=== PATIENT | female | born 1960 | race Caucasian/White ===

== ENCOUNTER 2020-06-07 14:28 | Inpatient (IN) | payer MEDICAID ==
[~2020-06-07] VITALS: Ht 165.1 cm; Wt 105.0 kg
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
[2020-06-07] MEDS ORDERED: SODIUM CHLORIDE FLUSH 10ML SYR IVF ONE (15:30)
[2020-06-07 16:11] LABS: ALANINE AMINOTRANSFERASE 31 U/L (12-78); ANION GAP 5 mmol/L (5-15); CALCIUM 8.8 mg/dL (8.5-10.1); CHLORIDE 105 mmol/L (98-107)
[2020-06-07 16:12] LABS: SALICYLATE LEVEL < 1.7 mg/dL (2.8-20.0)
[2020-06-07 16:16] LABS: ALKALINE PHOSPHATASE 94 U/L (45-117); BILIRUBIN,TOTAL 0.2 mg/dL (0.2-1.0); CREATININE 0.77 mg/dL (0.55-1.02); TOTAL PROTEIN 7.1 g/dL (6.4-8.2); TROPONIN I < 0.015 ng/mL (0.000-0.045)
--- NOTE | 2020-06-07 16:25 | NUR ---
STRAIGHT CATHED FOR UA. NAD. C/O L LEG PAIN. CALL RHODA.
[2020-06-07 16:51] LABS: BASOPHILS # (AUTO) 0.02 x10^3/uL (0-0.1); BASOPHILS % (AUTO) 0 % (0-1); EOSINOPHILS # (AUTO) 0.24 x10^3/uL (0-0.4); EOSINOPHILS % (AUTO) 3 % (1-7); LYMPHOCYTES # (AUTO) 2.16 x10^3/uL (1-3.4); LYMPHOCYTES % (AUTO) 30 % (22-44); MD NO; MEAN CORPUSCULAR HEMOGLOBIN 26.9 pg (27.0-34.8); MEAN CORPUSCULAR HGB CONC 32.2 g/dL (32.4-35.8); MEAN CORPUSCULAR VOLUME 83.7 fL (80-100); MEAN PLATELET VOLUME 7.9 fL (7.4-10.4); MONOCYTES # (AUTO) 0.52 x10^3/uL (0.2-0.8); MONOCYTES % (AUTO) 7 % (2-9); NEUTROPHILS # (AUTO) 4.26 x10^3/uL (1.8-6.8); NEUTROPHILS % (AUTO) 59 % (42-75); PLATELET COUNT 257 x10^3/uL (130-400); RED BLOOD COUNT 4.34 x10^6/uL (3.82-5.3); RED CELL DISTRIBUTION WIDTH 14.9 % (9.6-15.2)
[2020-06-07 17:19] LABS: MICROSCOPIC NOT IND
--- NOTE | 2020-06-07 17:23 | NUR ---
REPORT OF PT FROM QUINTON EL AND ASSUMING CARE OF PT AT THIS TIME.
--- NOTE | 2020-06-07 17:23 | NUR ---
URINE PENDING. REST IS WNL. REPORT TO DAKOTAH Brady RN.
[2020-06-07] MEDS ORDERED: SODIUM CHLORIDE FLUSH 10ML SYR IVF PRN (18:00)
[2020-06-07 18:42] LABS: AMPHETAMINE SCREEN, URINE Negative (Negative); BARBITURATE SCREEN, URINE Negative (Negative); BENZODIAZEPINE SCREEN, URINE Negative (Negative); CANNABINOID SCREEN, URINE Negative (Negative); COCAINE SCREEN, URINE Negative (Negative); METHADONE SCREEN, URINE Negative (Negative); OPIATE SCREEN, URINE Positive (Negative)
--- NOTE | 2020-06-07 19:58 | NUR ---
PT ASSISTED BACK TO [facility] AT THIS TIME.
[2020-06-07] MEDS ORDERED: CALCIUM CARBONATE 500 MG TAB.CHEW PO PRN (20:30)
[2020-06-07] MEDS ORDERED: hydrALAzine 20 MG/ML, 1ML IVPush PRN (20:30)
[2020-06-07] MEDS ORDERED: POLYETHYLENE GLYCOL 17 GM PACKET PO PRN (20:30)
[2020-06-07] MEDS: PLEASE ENTER ALLERGIES MC SCH ×2 (20:52→23:04)
[2020-06-07 22:55] VITALS: BP 139/68
[2020-06-07] MEDS: KETOROLAC 30 MG/1 ML IV PRN (23:11)
[2020-06-07] MEDS: ENOXAPARIN 40 MG/0.4 ML SQ SCH (23:11)
[2020-06-08 02:54] VITALS: BP 138/87
[2020-06-08] MEDS: PLEASE ENTER ALLERGIES MC SCH ×2 (05:18→20:52)
[2020-06-08] MEDS: KETOROLAC 30 MG/1 ML IV PRN ×2 (07:30→18:28)
[2020-06-08 08:10] VITALS: BP 143/88
[2020-06-08] MEDS: LIDODERM 5% PATCH TD PRN ×2 (09:22→18:29)
[2020-06-08] MEDS: ACETAMINOPHEN 325 MG TABLET PO PRN ×2 (11:59→18:28)
[2020-06-08] MEDS: INSULIN LISPRO 100 UNITS/ML, PEN SQ-INSULIN SCH ×3 (13:02→21:24)
[2020-06-08] MEDS ORDERED: DULO60CA56 PO (13:25)
[2020-06-08] MEDS ORDERED: OXYC-432 PO (13:25)
[2020-06-08] MEDS ORDERED: PREG200C PO (13:25)
[2020-06-08] MEDS ORDERED: NORT75CA PO (13:25)
[2020-06-08] MEDS ORDERED: SENN-190 PO (13:25)
[2020-06-08] MEDS ORDERED: ALOG25TA2 PO (13:29)
[2020-06-08] MEDS ORDERED: CHOL10003 PO (13:29)
[2020-06-08] MEDS ORDERED: PRAV10TA2 PO (13:29)
[2020-06-08] MEDS ORDERED: DOCU-186 PO (13:29)
[2020-06-08] MEDS ORDERED: CYCL5TAB PO (13:44)
[2020-06-08] MEDS ORDERED: ASPI-496 PO (13:44)
[2020-06-08] MEDS ORDERED: INSU100V34 SC (13:44)
[2020-06-08] MEDS ORDERED: [UNRECOGNIZED DRUG - OTHER] (13:46)
[2020-06-08] MEDS ORDERED: DULA1.5P SC (13:46)
[2020-06-08 14:35] VITALS: BP 138/79
[2020-06-08] MEDS: MELATONIN 5 MG TABLET PO PRN (21:24)
[2020-06-08 21:30] VITALS: BP 110/74
[2020-06-08] MEDS: ENOXAPARIN 40 MG/0.4 ML SQ SCH (22:00)
[2020-06-09] MEDS: ONDANSETRON 2MG/ML, 2ML IVPush PRN ×3 (00:55→22:17)
[2020-06-09] MEDS: KETOROLAC 30 MG/1 ML IV PRN ×3 (00:55→18:01)
[2020-06-09 01:43] VITALS: BP 103/63
[2020-06-09] MEDS: ACETAMINOPHEN 325 MG TABLET PO PRN ×2 (03:07→12:33)
[2020-06-09] MEDS: PLEASE ENTER ALLERGIES MC SCH ×2 (03:47→12:52)
[2020-06-09 07:59] VITALS: BP 113/74
[2020-06-09] MEDS: INSULIN LISPRO 100 UNITS/ML, PEN SQ-INSULIN SCH ×4 (08:30→20:55)
[2020-06-09 08:48] LABS: BASOPHILS # (AUTO) 0.02 x10^3/uL (0-0.1); BASOPHILS % (AUTO) 0 % (0-1); EOSINOPHILS # (AUTO) 0.13 x10^3/uL (0-0.4); EOSINOPHILS % (AUTO) 2 % (1-7); LYMPHOCYTES # (AUTO) 1.93 x10^3/uL (1-3.4); LYMPHOCYTES % (AUTO) 30 % (22-44); MD NO; MEAN CORPUSCULAR HEMOGLOBIN 26.7 pg (27.0-34.8); MEAN CORPUSCULAR VOLUME 83.3 fL (80-100); MEAN PLATELET VOLUME 7.7 fL (7.4-10.4); MONOCYTES # (AUTO) 0.43 x10^3/uL (0.2-0.8); MONOCYTES % (AUTO) 7 % (2-9); NEUTROPHILS # (AUTO) 3.94 x10^3/uL (1.8-6.8); NEUTROPHILS % (AUTO) 61 % (42-75); PLATELET COUNT 250 x10^3/uL (130-400); RED BLOOD COUNT 4.28 x10^6/uL (3.82-5.3); RED CELL DISTRIBUTION WIDTH 14.4 % (9.6-15.2)
[2020-06-09 09:04] LABS: ALANINE AMINOTRANSFERASE 29 U/L (12-78); ANION GAP 5 mmol/L (5-15); CALCIUM 8.8 mg/dL (8.5-10.1); CHLORIDE 110 mmol/L (98-107)
[2020-06-09 09:07] LABS: ALKALINE PHOSPHATASE 90 U/L (45-117); BILIRUBIN,TOTAL 0.5 mg/dL (0.2-1.0); CREATININE 0.68 mg/dL (0.55-1.02); TOTAL PROTEIN 7.1 g/dL (6.4-8.2)
[2020-06-09 14:50] VITALS: BP 138/77
[2020-06-09 20:43] VITALS: BP 144/94
[2020-06-09] MEDS ORDERED: ENOXAPARIN 40 MG/0.4 ML ONE (22:11)
[2020-06-09] MEDS ORDERED: MELATONIN 5 MG TABLET ONE (22:12)
[2020-06-09] MEDS ORDERED: ONDANSETRON 2MG/ML, 2ML ONE (22:12)
[2020-06-09] MEDS: BUTALB/APAP/CAFFEINE 50MG/325MG/40MG PO PRN (22:17)
[2020-06-09] MEDS: MELATONIN 5 MG TABLET PO PRN (22:17)
[2020-06-09] MEDS: ENOXAPARIN 40 MG/0.4 ML SQ SCH (22:18)
[2020-06-10 01:20] VITALS: BP 129/75
[2020-06-10] MEDS: BUTALB/APAP/CAFFEINE 50MG/325MG/40MG PO PRN (03:11)
[2020-06-10 07:00] VITALS: BP 150/102
[2020-06-10] MEDS: INSULIN LISPRO 100 UNITS/ML, PEN SQ-INSULIN SCH ×4 (08:22→21:00)
[2020-06-10] MEDS: ENALAPRIL 5MG TABLET PO SCH (10:40)
--- NOTE | 2020-06-10 11:50 | NUR ---
REC: [id number] Addendum: 06/10/20 at 1151 by Tessa SUÁREZ Amended: Links added.
[2020-06-10 13:20] VITALS: BP 145/88
[2020-06-10] MEDS ORDERED: POLYETHYLENE GLYCOL 17 GM PACKET PO PRN (17:30)
[2020-06-10] MEDS ORDERED: MELATONIN 5 MG TABLET PO PRN (17:30)
[2020-06-10] MEDS ORDERED: hydrALAzine 20 MG/ML, 1ML IVPush PRN (17:30)
[2020-06-10] MEDS ORDERED: CALCIUM CARBONATE 500 MG TAB.CHEW PO PRN (17:30)
[2020-06-10] MEDS ORDERED: BUTALB/APAP/CAFFEINE 50MG/325MG/40MG PO PRN (17:30)
[2020-06-10] MEDS ORDERED: ONDANSETRON 2MG/ML, 2ML IVPush PRN (17:30)
[2020-06-10] MEDS ORDERED: KETOROLAC 30 MG/1 ML IV PRN (17:30)
[2020-06-10] MEDS ORDERED: LIDODERM 5% PATCH TD PRN (17:30)
[2020-06-10] MEDS ORDERED: ACETAMINOPHEN 325 MG TABLET PO PRN (17:30)
[2020-06-10 19:31] VITALS: BP 138/94
[2020-06-10] MEDS ORDERED: ENOXAPARIN 40 MG/0.4 ML SQ SCH (22:00)
[2020-06-11 01:03] VITALS: BP 133/90
[2020-06-11 07:10] VITALS: BP 121/79
[2020-06-11] MEDS: INSULIN LISPRO 100 UNITS/ML, PEN SQ-INSULIN SCH ×4 (08:06→21:00)
[2020-06-11] MEDS: ENALAPRIL 5MG TABLET PO SCH (09:48)
[2020-06-11] MEDS ORDERED: ACETAMINOPHEN 325 MG TABLET PO PRN (10:30)
[2020-06-11] MEDS: HEPARIN 5,000 UNITS/ML, 1ML SQ SCH ×2 (11:20→18:13)
[2020-06-11] MEDS ORDERED: KETOROLAC 30 MG/1 ML IV PRN (11:30)
[2020-06-11 12:54] VITALS: BP 126/84
[2020-06-11] MEDS: CARVEDILOL 6.25 MG TABLET PO SCH (18:13)
[2020-06-11 19:02] VITALS: BP 110/63
[2020-06-11] MEDS ORDERED: ATORVASTATIN 40 MG TABLET PO SCH (21:00)
[2020-06-12 01:58] VITALS: BP 107/76
[2020-06-12 05:34] VITALS: BP 115/73
[2020-06-12] MEDS: HEPARIN 5,000 UNITS/ML, 1ML SQ SCH ×2 (05:36→16:41)
[2020-06-12] MEDS: CARVEDILOL 6.25 MG TABLET PO SCH (05:36)
[2020-06-12] MEDS ORDERED: ASPIRIN 81 MG TABLET EC PO SCH (06:00)
[2020-06-12 06:39] LABS: LDL/HDL RATIO 2.4 (0.5-3.0)
[2020-06-12 07:29] VITALS: BP 102/63
[2020-06-12] MEDS: ENALAPRIL 5MG TABLET PO SCH (08:30)
[2020-06-12] MEDS: INSULIN LISPRO 100 UNITS/ML, PEN SQ-INSULIN SCH ×3 (08:30→16:00)
[2020-06-12 13:29] VITALS: BP 136/76
[2020-06-12] MEDS ORDERED: ENAL5TAB PO (14:27)
[2020-06-12] MEDS ORDERED: PRAV40TA2 PO (14:27)
[2020-06-12] MEDS ORDERED: CARV6.2512 PO (14:27)
== END 2020-06-12 19:47 | disposition home health service (06) | DRG 71 ==
LOC: ED 17:57 → EDIP 19:21 → 5SO 21:47 → UNDODISIN 06-09 20:14 → 3N 06-12 01:56
PROVIDERS: ADMIT Internal Medicine; ATTEND Internal Medicine
DX: G93.41 Metabolic encephalopathy (principal); G45.9 Transient cerebral ischemic attack, unspecified; E11.42 Type 2 diabetes mellitus with diabetic polyneuropathy; E66.01 Morbid (severe) obesity due to excess calories; Z68.38 Body mass index [BMI] 38.0-38.9, adult; E78.5 Hyperlipidemia, unspecified; G47.33 Obstructive sleep apnea (adult) (pediatric); G89.29 Other chronic pain; I10 Essential (primary) hypertension; K22.4 Dyskinesia of esophagus; M21.372 Foot drop, left foot; Z79.4 Long term (current) use of insulin; Z79.891 Long term (current) use of opiate analgesic; Z80.1 Family history of malignant neoplasm of trachea, bronchus and lung; Z80.49 Family history of malignant neoplasm of other genital organs; Z83.3 Family history of diabetes mellitus; Z87.891 Personal history of nicotine dependence; Z90.710 Acquired absence of both cervix and uterus; Z82.3 Family history of stroke; Z88.0 Allergy status to penicillin; Z88.2 Allergy status to sulfonamides
CPT/HCPCS: 36415; 70450; 71045; 80053; 80061; 80307; 81003; 82140; 82962; 83036; 84484; 85025; 93005; 93306; 93880; G0378; J1644; J1650; J1885; J2405; 92523-GN; J1815